=== PATIENT | female | born 1945 | race Caucasian/White ===

== ENCOUNTER 2018-05-01 02:01 | Inpatient (IN) | payer OTHER ==
[~2018-05-01] VITALS: Ht 162.6 cm; Wt 68.0 kg
[~2018-05-01 02:01] MED LIST: ATORVASTATIN CA20 M1 PO; DILTIAZEM 24HR240 MG PO; FOLIC ACID1 M1 PO; LATANOPROST2.5 ML OD; LETROZOLE2.5 M1 PO; LO-DOSE ASPIRIN81 MG PO; METHOTREXATE2.5 M2 PO; METOPROLOL SUCC25 M1 PO; PRESERVISION L1 EACH PO; TYLENOL EXTRA500 M2 PO
--- NOTE | 2018-05-01 10:55 | Admission Core Measures ---
Acute Coronary Syndrome (CM) ACS Core Measures Acute Coronary Syndrome Diagnosis No Congestive Heart Failure (NEW) CHF Core Measures Congestive Heart Failure Diagnosis No Cerebrovascular Accident CVA Core Measures CVA/TIA Diagnosis No Venous Thromboembolism VTE Core Yony (View Protocol) VTE Risk Factors Surgery No Mechanical VTE Prophylaxis d/t N/A MechProphylax Ordered No VTE Pharm Prophylaxis d/t NA PharmProphylax ordered Problem List As ranked by this Provider includes Assessment & Plan 1. Unilateral primary osteoarthritis, right hip HOME MEDS Home Med List Acetaminophen (Tylenol Extra Strength) 500 MG TABLET 2 TAB PO TID PAIN ( Reported) Aspirin (Lo-Dose Aspirin EC) 81 MG TABLET.DR 1 TAB PO DAILY HEART/BLOOD ( Reported) Atorvastatin Calcium 20 MG TABLET 1 TAB PO DAILY CHOLESTEROL (Reported) Diltiazem HCl (Diltiazem 24HR ER) 240 MG CAP.ER.24H 1 CAP PO DAILY HEART/BP ( Reported) Folic Acid 1 MG TABLET 1 TAB PO DAILY SUPPLEMENT (Reported) Latanoprost 0.005 % DROPS 1 GTT OD QPM RIGHT EYE (Reported) Letrozole 2.5 MG TABLET 1 TAB PO DAILY CANCER (Reported) Methotrexate 2.5 MG TABLET 10 TAB PO QFRI MORPHEA (Reported) Metoprolol Succinate 25 MG TAB 1 TAB PO DAILY HEART/BP (Reported) Vit C/Lexx AC/Lut/Copper/Znox (Preservision Lutein Softgel) 226-200-5 CAPSULE 1 CAP PO DAILY SUPPLEMENT (Reported)
[2018-05-01] MEDS ORDERED: PRILOSEC OTC20 M1 PO (11:04)
[2018-05-01] MEDS ORDERED: ASPIRIN EC81 M1 PO (11:04)
[2018-05-01] MEDS ORDERED: COLACE100 M1 PO (11:04)
[2018-05-01] MEDS ORDERED: DILAUDID2 M1 PO (11:04)
[2018-05-01] MEDS ORDERED: MIRALAX17 G1 PO (11:04)
--- NOTE | 2018-05-01 11:07 | Patient Discharge Instructions ---
Discharge Instructions General Discharge Information You were seen/treated for: Right hip unilateral primary osteoarthritis You had these procedures: Right total hip replacement Watch for these problems: Increasing pain despite the use of pain medication Increasing redness, warmth or swelling Drainage of any type from incision Inability to bear weight on operative leg Persistent nausea and vomiting Fever greater than 101.5 degrees Do not soak the wound: Yes No bath, but you may shower: Yes Other wound care: Please keep wound clean and dry. No ointments or lotions of any type on or near incision at any time. No exceptions. Your dressing will be changed by your nurse on the second day after your surgery. Daily dry dressing changes are recommended each day thereafter. Do not soak your wound in a bath at any time until otherwise indicated by your surgeon. You may shower, please dry wound immediately after shower with a clean towel. Special Instructions: Aspirin: You are taking this medication to help prevent blood clot formation. Please take with food to protect your stomach lining. Please take as directed. Constipation: Pain medication can cause constipation. Dr. Nunes has recommended that you take Colace and miralax each day. You may discontinue this medication if you develop loose stool or diarrhea. If you wish to continue this medication, it is available over the counter. If you are unable to move your bowels after several days, if you are unable to pass gas and are developing bloating, nausea, or vomiting as a result, please contact your doctor. Diet Continue normal diet: Yes Recommended Diet: Regular Activity Full Activity/No Limits: No Activity Self Limited: Yes Pounds, do NOT lift more than: 10 Activity Limited to: Weight bear as tolerated Acute Coronary Syndrome Inclusion Criteria At DC or during hospital stay patient has or had the following: ACS DIAGNOSIS No Discharge Core Measures Meds if any: Prescribed or Continued at Discharge Meds if any: NOT Prescribed or Continued at Discharge Congestive Heart Failure Inclusion Criteria At DC or during hospital stay patient has or had the following: CHF DIAGNOSIS No Discharge Core Measures Meds if any: Prescribed or Continued at Discharge Meds if any: NOT Prescribed or Continued at Discharge Cerebrovascular accident Inclusion Criteria At DC or during hospital stay patient has or had the following: CVA/TIA Diagnosis No Discharge Core Measures Meds if any: Prescribed or Continued at Discharge Meds if any: NOT Prescribed or Continued at Discharge Venous thromboembolism Inclusion Criteria VTE Diagnosis No VTE Type NONE VTE Confirmed by (Test) NONE Discharge Core Measures - Per Current guidelines, there needs to be overlap - treatment for the first 5 days of Warfarin therapy. - If discharged on Warfarin prior to 5 days of - overlap therapy, the patient will need to be - assessed for post discharge needs including - *Post discharge parental anticoagulation - *Warfarin and/or parental anticoagulation education - *Follow up date to check INR post discharge At least 5 days overlap therapy as Inpatient No Meds if any: Prescribed or Continued at Discharge Note: Overlap Therapy is Warfarin and Anticoagulant Meds if any: NOT Prescribed or Continued at Discharge
--- NOTE | 2018-05-01 11:09 | Surgical Discharge Summary ---
Visit Information Visit Dates Admission Date: 05/01/18 Discharge Date: 05/03/18 History of Present Illness Chief Complaint: Right hip pain related to unilateral primary osteoarthritis Medical History Isolation History: Standard Surgical History Pertinent Surgical History: non-contributory Review of Systems: See H&P Hospital Course Course Attending Physician: Ezio Nunes MD Primary Care Physician: Adolfo BEARDEN,[facility] Course: Patient was admitted to the hospital for an elective total joint replacement. The procedure was tolerated well and patient was transferred to a general surgical floor. Diet was advanced and tolerated. The patient was evaluated and treated by physical therapy. At the time of hospital discharge, the vital signs were stable, neurovascular status was intact, and pain was controlled with the use of oral pain medications. Complications: None Allergies: Coded Allergies: No Known Allergies (04/29/18) Disposition Summary Disposition Principal Diagnosis: Right hip unilateral primary osteoarthritis Additional Diagnosis: same as above, s/p right total hip replacement Discharge Disposition: SNF Discharge Instructions General Discharge Information Code Status: Full Code Patient's Diet: regular, advance as tolerated Patient's Activity: WBAT Follow-Up Instructions/Appts: Follow up with Dr. Nunes in 6 weeks from date of surgery. Please call office to arrange &/or confirm this appointment. Medications at Discharge Discharge Medications: Stop taking the following medications: Aspirin (Lo-Dose Aspirin EC) 81 MG TABLET.DR VOGT DAILY Days = 0 Continue taking these medications: Atorvastatin Calcium (Atorvastatin Calcium) 20 MG TABLET 1 Tablet ORAL DAILY Qty = 90 Comments: Last Taken:05/02/18 Time:5:12 PM Diltiazem HCl (Diltiazem 24HR ER) 240 MG CAP.ER.24H 1 Capsule ORAL DAILY Qty = 90 Comments: Last Taken:05/03/18 Time:9:09 AM Folic Acid (Folic Acid) 1 MG TABLET 1 Tablet ORAL DAILY Qty = 90 Latanoprost (Latanoprost) 0.005 % DROPS 1 Drop Right Eye Every night Qty = 8 Letrozole (Letrozole) 2.5 MG TABLET 1 Tablet ORAL DAILY Qty = 90 Methotrexate (Methotrexate) 2.5 MG TABLET 10 Tablet ORAL EVERY SUNDAY Qty = 80 Metoprolol Succinate (Metoprolol Succinate) 25 MG TAB 1 Tablet ORAL DAILY Qty = 90 Vit C/Lexx AC/Lut/Copper/Znox (Preservision Lutein Softgel) 226-200-5 CAPSULE 1 Capsule ORAL DAILY Acetaminophen (Tylenol Extra Strength) 500 MG TABLET 2 Tablet ORAL THREE TIMES DAILY Comments: NOT GIVEN IN HOSPITAL Start taking the following new medications: Aspirin (Ecotrin*) 81 MG TABLET. 1 Tablet ORAL TWICE DAILY Qty = 60 No Refills Docusate Sodium (Colace) 100 MG CAPSULE 1 Capsule ORAL TWICE DAILY Qty = 14 No Refills Instructions: DISCONTINUE USE IF YOU DEVELOP LOOSE STOOL OR DIARRHEA Polyethylene Glycol 3350 (Miralax) 17 GRAM POWD.PACK 1 Packet ORAL DAILY Qty = 7 No Refills Instructions: dissolve in water, DISCONTINUE USE IF YOU DEVELOP LOOSE STOOL OR DIARRHEA Hydromorphone HCl (Dilaudid) 2 MG TABLET 1-2 Tablet ORAL EVERY 4-6 HOURS NEEDED as needed for PAIN Qty = 36 No Refills Omeprazole Magnesium (Prilosec Otc) 20 MG TABLET. 1 Tablet ORAL DAILY Qty = 30 No Refills Copies To: Bronson Mata MD
--- NOTE | 2018-05-01 11:36 | RADIOLOGY REPORT ---
EXAMINATION: XR HIP, RIGHT CLINICAL INFORMATION: Right total hip arthroplasty. COMPARISON: No relevant prior imaging. TECHNIQUE: Two views of the right hip. FINDINGS: There are expected postoperative changes of a right total hip arthroplasty. Soft tissue gas is consistent with recent surgery. Hardware components are grossly intact. No evidence of dislocation. Visualized portions of the right hemipelvis and proximal right femur are unremarkable. IMPRESSION: Expected postoperative changes of a total right hip arthroplasty. No dislocation.
--- NOTE | 2018-05-01 12:46 | PN- Orthopedic ---
Subjective Subjective: POST-OP NOTE No complaints. "I have no pain". Tolerating clears. No nausea. Not yet out of bed. Denies dizziness. No shortness of breath. No chest pains. She is going to ask her family to bring in her eye drops from home, since our pharmacy does not carry them. Reports ongoing numbness slowly wearing off from block. Objective Vital Signs and I&Os Intake & Output 05/01 1600 05/01 0800 05/01 0000 04/30 1600 04/30 0800 04/30 0000 Intake Total Output Total Balance Patient 194 lb Weight PACU flowsheet reviewed, vss Physical Exam: General - alert & oriented x 3. comfortable. no acute distress. Lungs - clear bilaterally. no w/r/r. Cardiac - s1s2. reg. Abdomen - soft. nontender. Extremities - warm bilaterally. no c/c/e. calves soft and nontender. right hip dressing c/d/i. no drains. no hematoma. athrombics in place. Current Medications: Current Medications Sig/Xenia Start time Last Medication Dose Route Stop Time Status Admin Acetaminophen 0 .STK-MED ONE 05/01 0800 DC PO Acetaminophen 975 MG ONCE 05/01 0000 NR PO 05/01 2359 Cefazolin Sodium 2,000 MG ONCE 05/01 0000 NR IV 05/01 2359 Oxycodone HCl 0 .STK-MED ONE 05/01 0800 DC PO Oxycodone HCl 10 MG ONCE 05/01 0000 NR PO 05/01 2359 Assessment/Plan Assessment/Plan This 72 year old female with hx htn, hld, glaucoma, morphea, who is POD#0 s/p right total hip replacement for primary osteoarthritis advance diet as tolerated pain control as ordered asa bid - dvt ppx ancef x 2 doses post-op PT eval due to void this afternoon home meds re-ordered (although she will be asking family to bring in her glaucoma drops) dressing change POD#2 f/u am labs will d/w Core Measures Venous Thromboembolism VTE Risk Factors Surgery No Mechanical VTE Prophylaxis d/t N/A MechProphylax Ordered No VTE Pharm Prophylaxis d/t NA PharmProphylax ordered
[2018-05-01 13:30] VITALS: BP 118/62
[2018-05-01 14:43] VITALS: BP 110/70
[2018-05-01 15:30] VITALS: BP 112/54
--- NOTE | 2018-05-01 16:48 | Operative Report ---
Operative/Inv Procedure Report Surgery Date: 05/01/18 Name of Procedure: Right total hip replacement Pre-Operative Diagnosis: Primary right hip DJD Post-Operative Diagnosis: Same Estimated Blood Loss: 250 Surgeon/Home Care Associate: Manju BEARDEN,Ezio [place] Anesthesia: block Operative/Procedure Note Note: Description of Procedure: The patient was taken to the operating room and positively identified. After induction of spinal anesthesia and administration of appropriate pre-operative antibiotics, the patient was positioned supine on the operating room table and all bony prominences were well padded. After performing a surgical timeout, the right lower extremity was prepped and draped in the usual sterile fashion. A direct anterior approach was made to the right hip. The incision was carried sharply through superficial soft tissues to the level of the fascia. Meticulous hemostasis was maintained with Bovie electocautery. The fascia over the tensor fascia katey muscle was opened sharply and the interval between the TFL and the sartorius was entered bluntly taking care to stay lateral to the lateral femoral cutaneous nerve. Retractors were placed around the femoral neck and the pericapsular fat was identified. The ascending branches of the lateral femoral circumflex vessels were identified and carefully coagulated. The pericapsular fat and anterior capsule were then resected. A napkin ring osteotomy was performed and the femoral head was removed without difficulty. Attention was then turned to the acetabulum. After appropriate placement of retractors, the acetabulum was exposed. Soft tissue was cleaned from the acetabular margin and notch. Overhanging osteophytes were removed and the teardrop was exposed. The acetabulum was then sequentially reamed to accept a 56 mm Garland Tritanium hemispherical solid shell. This was impacted into place in the appropriate position and fitted with a 36 mm Trident X3 zero degree polyethylene insert. Attention was then turned to the femur. After performing the appropriate ligament releases, the proximal femur was exposed. It was then sequentially broached to accept a size 3 Garland accolade 2 132 neck angle stem. This was trialed for leg length and stability. The trial component was removed and the final component was impacted into place. The trunnion was carefully cleaned and fit with a 36 mm, +2.5 Biolox delta ceramic femoral head. The hip was reduced and put through a full range of motion and found to be stable. The articular space was then irrigated with sterile saline. The periarticular soft tissues were infilitrated with Marcaine. The fascial layer was closed with interrupted #1 vicryl suture and the skin was re-approximated with interrupted 2 -0 vicryl. The skin was closed with a running 3-0 V-Lock suture. Steri-strips and a sterile dressing were applied. The patient was awakened and taken to the recovery room in satisfactory condition.
[2018-05-01 17:30] VITALS: BP 124/74
[2018-05-01 19:30] VITALS: BP 130/66
[2018-05-02 04:03] VITALS: BP 120/60
[2018-05-02 06:55] VITALS: BP 116/61
[2018-05-02 08:25] LABS: ABSOLUTE BASOPHIL COUNT 0 /CUMM (0.0-0.2); ABSOLUTE EOSINOPHIL COUNT 0 /CUMM (0.0-0.7); ABSOLUTE GRANULOCYTE CT 9.4 /CUMM (1.4-6.5); ABSOLUTE MONOCYTE COUNT 1.2 /CUMM (0.10-0.60); BASOPHIL % 0 % (0.0-2.0); EOSINOPHIL % 0 % (0-5); GRANULOCYTE % 81.2 % (42.2-75.2); HEMATOCRIT 34.2 % (37-47); MEAN CORPUSCULAR HGB 32.8 PG (27.0-31.0); MEAN CORPUSCULAR HGB CONC 33.7 G/DL (33.0-37.0); MEAN CORPUSCULAR VOLUME 97.4 FL (81.0-99.0); PLATELET COUNT 313 /CUMM (130-400); RBC DISTRIBUTION WIDTH 15.4 % (11.5-14.5); RED BLOOD CELL CT 3.51 /CUMM (4.20-5.40); WHITE BLOOD CELL COUNT 11.5 /CUMM (4.8-10.8)
--- NOTE | 2018-05-02 08:51 | PN- Orthopedic ---
Subjective Subjective: No acute overnight events reported. Ambulated with PT this am. Pain controlled at the present moment. Denies chest pain, shortness of breath and difficulty breathing. Denies nausea and vomitting. Has voided. Objective Vital Signs and I&Os Vital Signs Date Time Temp Pulse Resp B/P B/P Pulse O2 O2 Flow FiO2 Mean Ox Delivery Rate 05/02 0655 97.9 66 18 116/61 92 Room Air 05/02 0403 98.0 67 20 120/60 92 Room Air 05/01 1930 97.5 65 18 130/66 93 Room Air 05/01 1730 97.7 69 18 124/74 95 Room Air 05/01 1530 97.8 70 18 112/54 91 Room Air 05/01 1443 96.8 64 20 110/70 94 Room Air Room Air 05/01 1333 Room Air 05/01 1330 97.7 64 20 118/62 93 Room Air Intake & Output 05/02 1600 05/02 0800 05/02 0000 05/01 1600 05/01 0800 05/01 0000 Intake Total 800 850 855 Output Total 600 2300 Balance 200 -1450 855 Intake, IV 600 600 375 Intake, Oral 200 250 480 Output, Urine 600 2300 Patient 194 lb Weight Weight Reported by Patient Measurement Method Physical Exam: General: Alert and oriented x3, no acute distress Cardiac; RRR, s1s2 Pulm: CTA bilaterally, non-labored respiratory effort Abd; Soft, non-tender, non-distended Extremities: Moves all extremities, distal sensation intact. Skin warm and well perfused. DP pulses palpable. Surgical site: RIght hip, dressing intact, some eccymosis, no erythema, no drainage. Thigh compartment soft. Assessment/Plan Assessment/Plan This is a 72 year old female, POD 1, s/p R Total Hip Replacement. Doing well -Add nicotine patch and gum per pt request -OOB, WBAT -COntinue current pain regimen -DC iv fluids -Case management to discuss discharge planning, str vs home with services Will discuss plan of care with Dr. Rogers. Core Measures Venous Thromboembolism VTE Risk Factors Surgery No Mechanical VTE Prophylaxis d/t N/A MechProphylax Ordered No VTE Pharm Prophylaxis d/t NA PharmProphylax ordered
[2018-05-02 11:51] VITALS: BP 124/52
[2018-05-02 14:09] VITALS: BP 92/50
[2018-05-02 21:11] VITALS: BP 140/70
[2018-05-03 06:57] VITALS: BP 117/70
--- NOTE | 2018-05-03 07:31 | PN- Orthopedic ---
Subjective Subjective: pT IN BED WITH 5/10 PAIN. TOLERATING DIET. VOIDING. LAST BM WAS 2 DAYS AGO. AMBULATING WITH PT. DENEIS PARESTHESIAS PT IS PLANNING TO GO TO [facility], LIVES ALONE AND CANT GET OUT OF BED BY HERSELF Objective Vital Signs and I&Os Vital Signs Date Time Temp Pulse Resp B/P B/P Pulse O2 O2 Flow FiO2 Mean Ox Delivery Rate 05/03 0657 98.5 83 20 117/70 92 Room Air 05/02 2111 98.4 74 18 140/70 93 Room Air 05/02 1619 Room Air Room Air 05/02 1409 98.5 72 18 92/50 93 Room Air 05/02 1151 98.2 55 18 124/52 92 Room Air 05/02 0959 64 117/67 Intake & Output 05/03 0800 05/03 0000 05/02 1600 05/02 0800 05/02 0000 05/01 1600 Intake Total 700 510 600 800 850 855 Output Total 400 300 041 724 6674 Balance 300 210 -150 200 -1450 855 Intake, IV 600 10 0 600 600 375 Intake, Oral 100 500 600 200 250 480 Number 0 Bowel Movements Output, Urine 400 300 006 215 1047 Patient 150 lb 194 lb Weight Weight Reported by Patient Measurement Method Physical Exam: GEN- NAD RESP- CLEAR CARDIAC-RRR ABD- SOFT, NT. small area of skin breakdown under panus bilaterally, moist and erythematous EXT- RIGHT THIGH SOFT, DRESSING CHANGED, INCISION SKIN EDGE APPROXIMATED, NO DRAINAGE. NO SIGNS OF INFECTION. DISTAL SENSORY AND MOTOR FUNCTION INTACT. 2+ DP PULSE Current Medications: Current Medications Sig/Xenia Start time Last Medication Dose Route Stop Time Status Admin Aspirin Buffered 81 MG BID 05/01 2100 AC 05/02 PO 2039 Atorvastatin Calcium 20 MG 1700 05/01 1700 AC 05/02 PO 1612 Dextrose/Sodium 1,000 ML .[id number] 05/01 1330 DC 05/02 Chloride IV 0529 Diltiazem HCl 240 MG DAILY 05/02 900 AC 05/02 PO 09 Docusate Sodium 100 MG BID 05/01 2100 AC 05/02 PO 2039 Folic Acid 1 MG DAILY 05/02 900 AC 05/02 PO 0959 Hydromorphone HCl 2 MG Q4P PRN 05/01 1330 AC 05/02 PO 1613 Hydromorphone HCl 4 MG Q4P PRN 05/01 1330 AC 05/03 PO 0021 Ketorolac 15 MG Q8P PRN 05/01 1330 AC 05/02 Tromethamine IV 05/04 1316 1248 Latanoprost 1 GTT QPM 05/01 2100 AC 05/02 OPH 2040 Letrozole 2.5 MG DAILY 05/02 0900 AC 05/02 PO 0959 Methotrexate 25 MG QFRI 05/03 0900 AC PO Metoprolol Succinate 25 MG DAILY 05/02 09 AC 05/02 PO 0959 Morphine Sulfate 2 MG Q2P PRN 05/01 1330 AC 05/02 IV 1758 Nicotine 4 MG Q4P PRN 05/02 0900 AC PO Nicotine 21 MG DAILY 05/02 09 AC 05/02 TOP 1147 Omeprazole 40 MG DAILY AC 05/02 0700 AC 05/03 PO 0538 Ondansetron HCl 4 MG Q6P PRN 05/01 1330 AC IV Polyethylene Glycol 17 GM DAILY 05/02 0900 AC 05/02 PO 0959 Promethazine HCl 12.5 MG Q6P PRN 05/01 1330 AC IV 05/08 1059 Results Last 48 Hours of Labs: Laboratory Tests 05/02 0655 Chemistry Sodium (137 - 145 mmol/L) 139 Potassium (3.5 - 5.1 mmol/L) 4.0 Chloride (98 - 107 mmol/L) 107 Carbon Dioxide (22 - 30 mmol/L) 23 Anion Gap (5 - 16) 9 BUN (7 - 17 mg/dL) 14 Creatinine (0.5 - 1.0 mg/dL) 0.6 Estimated GFR (>60 ml/min) > 60 BUN/Creatinine Ratio (7 - 25 %) 23.3 Hematology CBC w Diff NO MAN DIFF REQ WBC (4.8 - 10.8 /CUMM) 11.5 H RBC (4.20 - 5.40 /CUMM) 3.51 L Hgb (12.0 - 16.0 G/DL) 11.5 L Hct (37 - 47 %) 34.2 L MCV (81.0 - 99.0 FL) 97.4 MCH (27.0 - 31.0 PG) 32.8 H MCHC (33.0 - 37.0 G/DL) 33.7 RDW (11.5 - 14.5 %) 15.4 H Plt Count (130 - 400 /CUMM) 313 MPV (7.4 - 10.4 FL) 7.0 L Gran % (42.2 - 75.2 %) 81.2 H Lymphocytes % (20.5 - 51.1 %) 8.5 L Monocytes % (1.7 - 9.3 %) 10.3 H Eosinophils % (0 - 5 %) 0 Basophils % (0.0 - 2.0 %) 0 Absolute Granulocytes (1.4 - 6.5 /CUMM) 9.4 H Absolute Lymphocytes (1.2 - 3.4 /CUMM) 1.0 L Absolute Monocytes (0.10 - 0.60 /CUMM) 1.2 H Absolute Eosinophils (0.0 - 0.7 /CUMM) 0 Absolute Basophils (0.0 - 0.2 /CUMM) 0 Assessment/Plan Assessment/Plan This is a 72 year old female, POD 2, s/p R Total Hip Replacement. Stable -Add nystatin powder for groin fold -OOB, WBAT -COntinue current pain regimen -Pt- wbat with rw -Case management to discuss discharge planning, str vs home with services Will discuss plan of care with Dr. Rogers. Core Measures Venous Thromboembolism VTE Risk Factors Surgery No Mechanical VTE Prophylaxis d/t N/A MechProphylax Ordered No VTE Pharm Prophylaxis d/t NA PharmProphylax ordered
[2018-05-03 13:38] VITALS: BP 142/78
== END 2018-05-03 18:29 | DRG 470 ==
LOC: SDA 02:01 → ENRESERV 10:56 → ENTRNSPT 12:51 → EDTRNSPTSTS 12:52 → EDTRNSPT 12:52 → 2NB 13:10 → CMPTRNSPT 13:15 → ENPENDDIS 05-03 13:39 → 2NB 05-03 18:29
PROVIDERS: Nurse Practitioner
PROC: 0SR904A Replacement of Right Hip Joint with Ceramic on Polyethylene Synthetic Substitute, Uncemented, Open Approach (ICD-10-PCS; principal; 2018-05-01)
DX: M16.11 Unilateral primary osteoarthritis, right hip (principal); J44.9 Chronic obstructive pulmonary disease, unspecified; I10 Essential (primary) hypertension; E78.5 Hyperlipidemia, unspecified; I48.91 Unspecified atrial fibrillation; I25.10 Atherosclerotic heart disease of native coronary artery without angina pectoris; G47.33 Obstructive sleep apnea (adult) (pediatric); H40.9 Unspecified glaucoma; G89.29 Other chronic pain; M54.9 Dorsalgia, unspecified; Z85.3 Personal history of malignant neoplasm of breast; F17.210 Nicotine dependence, cigarettes, uncomplicated
CPT/HCPCS: 2NBP; 36592; 73502-RT; 82436; 97110-GO; 97116-GO; 97161-GP; 97530-GO; J0131; J0690; J0735; J1100; J2405; J2550; J3490; J7042; J8610